=== PATIENT | female | born 1990 | race Caucasian/White ===

== ENCOUNTER 2021-11-30 11:22 | Emergency (ER) | payer SELFPAY ==
[2021-11-30 11:34] VITALS: BP 108/75; PULSE 74
[2021-11-30] MEDS ORDERED: Sodium Chloride 0.9% 10 ML Syringe FLUSH PRN (11:44)
[2021-11-30] MEDS ORDERED: Sodium Chloride 0.9% 1,000 ML IV SCH (11:45)
== END 2021-11-30 14:50 | disposition home or self-care (01) ==
LOC: JD.ED 11:22
DX: R07.89 Other chest pain (principal); Z88.0 Allergy status to penicillin; Z72.0 Tobacco use
CPT/HCPCS: 36415; 71045; 80053; 84484; 84703; 85025; 85379; 93005; 99285; J7030; 93010; J3490

== ENCOUNTER 2022-05-10 20:51 | Emergency (ER) | payer SELFPAY ==
[2022-05-10 21:44] VITALS: BP 111/75; PULSE 70
== END 2022-05-10 22:23 ==
LOC: JD.ED 20:51
DX: Z53.21 Procedure and treatment not carried out due to patient leaving prior to being seen by health care provider (principal)

== ENCOUNTER 2022-06-07 20:13 | Emergency (ER) | payer SELFPAY ==
[2022-06-07] MEDS ORDERED: Ibuprofen 600 MG Tab PO ONE (20:55)
[2022-06-07 21:49] VITALS: BP 98/64; PULSE 87
== END 2022-06-07 21:49 ==
LOC: JD.ED 20:13
DX: R56.9 Unspecified convulsions (principal); F17.210 Nicotine dependence, cigarettes, uncomplicated; Z88.0 Allergy status to penicillin
CPT/HCPCS: 99284; A9270; 99282

== ENCOUNTER 2025-02-12 08:32 | Emergency (ER) | payer SELFPAY ==
[2025-02-12 09:31] LABS: BASOPHILS ABSOLUTE AUTO 0.1 K/mm3 (0.0-0.2); BASOPHILS PERCENT AUTO 0.8 % (0.0-1.0); EOSINOPHILS ABSOLUTE AUTO 0.2 K/mm3 (0.0-0.4); EOSINOPHILS PERCENT AUTO 2.1 % (0.0-6.0); HEMATOCRIT 41.2 % (37.0-47.0); IMMATURE GRAN ABSOLUTE AUTO 0.02 K/mm3 (0.00-0.05); IMMATURE GRAN PERCENT AUTO 0.2 % (0.0-0.4); LYMPHOCYTES PERCENT AUTO 34.9 % (24.0-44.0); MEAN CORPUSCULAR HEMOGLOBIN 28.9 pg (28.0-32.0); MEAN CORPUSCULAR VOLUME 84.9 fl (83.0-99.0); MEAN PLATELET VOLUME 8.4 fl (9.4-12.3); MONOCYTES ABSOLUTE AUTO 0.4 K/mm3 (0.0-0.8); MONOCYTES PERCENT AUTO 4.4 % (0.0-8.0); NEUTROPHILS ABSOLUTE AUTO 4.9 K/mm3 (1.8-7.7); NEUTROPHILS PERCENT AUTO 57.6 % (41.0-71.0); PLATELET COUNT,PLT 388 K/mm3 (150-400); RED BLOOD CELL COUNT 4.85 M/mm3 (4.10-5.30); WHITE BLOOD CELL COUNT,WBC 8.48 K/mm3 (3.9-11.3)
[2025-02-12 09:58] LABS: ANION GAP 12.2 (5-15); BUN/CREATININE RATIO 11.3 (14-18); CALCIUM 8.8 mg/dL (8.5-10.1); CREATININE 0.8 mg/dL (0.55-1.02); EST CRCL DRUG DOSING (CG) 99.95 mL/min; POTASSIUM,K 4.2 mEq/L (3.5-5.1)
[2025-02-12 10:50] VITALS: BP 120/83; PULSE 69
== END 2025-02-12 10:00 | disposition home or self-care (01) ==
LOC: JD.ED 08:32
DX: O03.9 Complete or unspecified spontaneous abortion without complication (principal); F17.210 Nicotine dependence, cigarettes, uncomplicated; Z88.0 Allergy status to penicillin
CPT/HCPCS: 36415; 76817; 76817-26; 80048; 84702; 85025; 99284

== ENCOUNTER 2025-05-08 18:46 | Emergency (ER) | payer MEDICAID ==
[2025-05-08 20:12] VITALS: BP 112/80; PULSE 91
== END 2025-05-08 20:05 | disposition home or self-care (01) ==
LOC: JD.ED 18:46
DX: R46.89 Other symptoms and signs involving appearance and behavior (principal); Z88.0 Allergy status to penicillin
CPT/HCPCS: 99282; 99283

== ENCOUNTER 2025-06-21 06:00 | Emergency (ER) | payer MEDICAID ==
[2025-06-21 06:13] VITALS: PULSE 68
[2025-06-21] MEDS: Iopamidol 755 Mg/ML 100 ML Bottle IVPUSH ONE ×2 (06:40→07:55)
[2025-06-21 07:06] LABS: BASOPHILS ABSOLUTE AUTO 0.1 K/mm3 (0.0-0.2); BASOPHILS PERCENT AUTO 0.9 % (0.0-1.0); EOSINOPHILS ABSOLUTE AUTO 0.4 K/mm3 (0.0-0.4); EOSINOPHILS PERCENT AUTO 5.5 % (0.0-6.0); IMMATURE GRAN ABSOLUTE AUTO 0.03 K/mm3 (0.00-0.05); IMMATURE GRAN PERCENT AUTO 0.5 % (0.0-0.4); LYMPHOCYTES ABSOLUTE AUTO 2.5 K/mm3 (1.0-4.8); LYMPHOCYTES PERCENT AUTO 39.8 % (24.0-44.0); MEAN PLATELET VOLUME 9.4 fl (9.4-12.3); MONOCYTES ABSOLUTE AUTO 0.4 K/mm3 (0.0-0.8); MONOCYTES PERCENT AUTO 6.0 % (0.0-8.0); NEUTROPHILS ABSOLUTE AUTO 3.0 K/mm3 (1.8-7.7); NEUTROPHILS PERCENT AUTO 47.3 % (41.0-71.0); NRBC ABSOLUTE 0.00 (0.00-0.02); NRBC PERCENT 0.0 % (0.0-0.2); PLATELET COUNT,PLT 264 K/mm3 (150-400); RED BLOOD CELL COUNT 4.59 M/mm3 (4.10-5.30); WHITE BLOOD CELL COUNT,WBC 6.36 K/mm3 (3.9-11.3)
[2025-06-21 07:26] LABS: A/G RATIO 1.3 (1-2); ALANINE AMINOTRANSFERASE,ALT 16 U/L (14-59); ASPARTATE AMNIOTRANSFERASE,AST 25 U/L (15-37); BILIRUBIN TOTAL 0.3 mg/dL (0.2-1.0); BLOOD UREA NITROGEN,BUN 11 mg/dL (7-18); CARBON DIOXIDE,CO2 26 mEq/L (21-32); CHLORIDE,CL 108 mEq/L (98-107); CREATININE 0.7 mg/dL (0.55-1.02); EST CRCL DRUG DOSING (CG) 114.23 mL/min; ESTIMATED GFR 116 mL/min (>60); GLUCOSE RANDOM 93 mg/dL (70-99); POTASSIUM,K 4.0 mEq/L (3.5-5.1); PROTEIN TOTAL,TP 6.7 g/dl (6.4-8.2); SODIUM,NA 143 mEq/L (136-145)
[2025-06-21 07:27] LABS: TROPONIN I HIGH SENSITIVITY < 4 pg/mL (<=51)
[2025-06-21] MEDS: Sodium Chloride 0.9% 10 ML Syringe FLUSH PRN (07:40)
[2025-06-21 10:15] VITALS: BP 101/58
== END 2025-06-21 10:00 | disposition home or self-care (01) ==
LOC: JD.ED 06:00
DX: R07.2 Precordial pain (principal); R05.9 Cough, unspecified; F17.210 Nicotine dependence, cigarettes, uncomplicated; Z88.0 Allergy status to penicillin; Z79.899 Other long term (current) drug therapy
CPT/HCPCS: 36415; 71275; 80053; 83690; 83735; 84484; 84703; 85025; 93005; 99285; A9270; Q9967; 93010; 99284